=== PATIENT | female | born 1960 | race Asian ===

== ENCOUNTER 2019-03-09 02:24 | Emergency (ER) | payer MEDICAID ==
[~2019-03-09] VITALS: Ht 165.1 cm; Wt 56.7 kg
[2019-03-09] MEDS ORDERED: HYDROcodone-ACET 5/325MG TAB PO ONE (04:30)
[2019-03-09 05:41] LABS: Urine Bacteria FEW /hpf (None Seen); Urine Blood Negative /uL (Negative); Urine Mucus FEW (None Seen); Urine Specific Gravity 1.014 (1.001-1.035); Urine WBC 5 /hpf (0 - 5)
[2019-03-09 06:33] VITALS: BP 125/80
== END 2019-03-09 07:35 | disposition home or self-care (01) ==
LOC: ER 02:26
DX: S22.039A Unspecified fracture of third thoracic vertebra, initial encounter for closed fracture (principal); S22.049A Unspecified fracture of fourth thoracic vertebra, initial encounter for closed fracture; S22.059A Unspecified fracture of T5-T6 vertebra, initial encounter for closed fracture; R42 Dizziness and giddiness; V43.52XA Car driver injured in collision with other type car in traffic accident, initial encounter; Y93.89 Activity, other specified; Y92.488 Other paved roadways as the place of occurrence of the external cause; Y99.8 Other external cause status
CPT/HCPCS: 70450; 72125; 72128; 81001